=== PATIENT | female | born 1990 | race Caucasian/White ===

== ENCOUNTER 2017-03-15 20:06 | Emergency (ER) | payer OTHER, MEDICAID ==
[~2017-03-15] VITALS: Ht 167.6 cm; Wt 70.3 kg
[~2017-03-15 20:06] MED LIST: OMEP20CA74 PO; SUM25T
[2017-03-15 20:14] VITALS: BP 123/74
== END 2017-03-15 23:03 | disposition home or self-care (01) ==
LOC: ER 20:06
DX: R20.0 Anesthesia of skin (principal); M79.605 Pain in left leg; G62.9 Polyneuropathy, unspecified; Z82.49 Family history of ischemic heart disease and other diseases of the circulatory system
CPT/HCPCS: 72131